=== PATIENT | female | born 1955 | race Hispanic/Latino ===

== ENCOUNTER 2017-01-05 14:53 | Outpatient (CLI) | payer BC ==
--- NOTE | 2017-01-06 07:06 | Vascular Lab Report ---
Left Lower Extremity Venous Duplex Study: Reason for Exam: Edema of the left lower extremity. Comments on the Right: A limited duplex study was done of the proximal veins of the right lower extremity. All veins visualized are freely compressible without evidence of internal echogenicity. Flow is spontaneous and phasic throughout. No evidence of acute or chronic thrombus is seen in any of the vessels visualized. Comments on the Left: All veins visualized are freely compressible without evidence of internal echogenicity. Flow is spontaneous and phasic throughout. No evidence of acute or chronic thrombus is seen in any of the vessels visualized. Impression: No evidence of acute or chronic deep venous thrombosis in the left lower extremity.
== END 2017-01-05 14:54 | disposition home or self-care (01) ==
LOC: VAS 14:53
PROVIDERS: ATTEND Internal Medicine
DX: R60.9 Edema, unspecified (principal)